=== PATIENT | female | born 1960 | race Hispanic/Latino ===

== ENCOUNTER 2021-05-25 13:52 | Emergency (ER) | payer OTHER ==
[~2021-05-25] VITALS: Ht 165.1 cm; Wt 98.9 kg
[2021-05-25] MEDS ORDERED: MUCINEX600 MG PO (15:24)
== END 2021-05-25 15:35 | disposition home or self-care (01) ==
LOC: ER 14:10
DX: R07.9 Chest pain, unspecified (principal); R05.9 Cough, unspecified; I10 Essential (primary) hypertension; E11.9 Type 2 diabetes mellitus without complications
CPT/HCPCS: 71045; 99283